=== PATIENT | female | born 1995 | race Caucasian/White ===

== ENCOUNTER 2020-03-19 08:08 | Inpatient (IN) ==
[2020-03-19] MEDS ORDERED: Lidocaine 1% 20 ML MDV INFILT PRN (08:20)
[2020-03-19] MEDS ORDERED: Famotidine 20 MG/2 ML VIAL IVP PRN (08:20)
[2020-03-19] MEDS ORDERED: *HR* FentaNYL (PF) 100 MCG/2 ML VIAL IVP PRN (08:20)
[2020-03-19] MEDS ORDERED: Ondansetron 4 MG/2 ML VIAL IVP PRN (08:20)
[2020-03-19] MEDS ORDERED: Azithromycin 500 MG in 0.9 % Sodium Chloride 250 ML IVPB ONE (08:20)
[2020-03-19] MEDS ORDERED: Metoclopramide 10 MG/2 ML VIAL IVP PRN (08:20)
[2020-03-19] MEDS ORDERED: miSOPROStoL 25 MCG TABLET VG PRN ×2 (08:20→13:23)
[2020-03-19] MEDS ORDERED: Naloxone 0.4 MG/ML INJ IVP PRN (08:20)
[2020-03-19] MEDS ORDERED: EPHEDrine 50 MG/ML VIAL IVP PRN (08:21)
[2020-03-19] MEDS ORDERED: Oxytocin 20 units/ LR 1000 mL 20 UNIT/1,000 ML BAG IVC SCH (08:30)
[2020-03-19] MEDS ORDERED: Epidural Premix (fent/bupiv) 110 ML EP SCH (08:30)
[2020-03-19] MEDS: Ringers Solution, Lactated 1,000 ML IVC SCH ×2 (09:05→18:09)
[2020-03-19 09:28] LABS: Basophils % 0.2 %; Eosinophils # 0.2 K/mcL (0.0-0.6); Hematocrit 31.3 % (35.3-44.9); Hemoglobin 9.9 g/dL (11.5-15.4); Immature Granulocytes % 0.5 % (0-4); Lymphocytes # 1.9 K/mcL (0.6-4.6); Lymphocytes % 23.3 %; Mean Corpuscular HGB Conc 31.6 g/dL (31.6-35.5); Mean Corpuscular Hemoglobin 27.3 pg (28.0-33.3); Mean Corpuscular Volume 86.5 fL (83.0-100.0); Mean Platelet Volume 10.7 fL (9.4-12.4); Monocytes # 0.6 K/mcL (0.0-1.3); Monocytes % 7.6 %; Neutrophils # 5.4 K/mcL (1.6-8.9); Platelet Count 228 K/mcL (140-400); Red Blood Count 3.62 M/mcL (3.82-4.97); Red Cell Distribution Width 15.8 % (11.5-14.5); Segmented Neutrophils % 66.4 %; White Blood Count 8.1 K/mcL (4.3-11.1)
[2020-03-19 09:36] LABS: Amphetamine Screen,Urine Negative ng/mL (Cutoff=1000); Barbiturate Screen,Urine Negative ng/mL (Cutoff=200); Benzodiazepines Screen,Urine Negative ng/mL (Cutoff=200); Cannabinoid Screen,Urine Negative ng/mL (Cutoff = 50); Cocaine Screen,Urine Negative ng/mL (Cutoff= 300); Opiate Screen,Urine Negative ng/mL (Cutoff=300); Phencyclidine Screen,Urine Negative ng/mL (Cutoff=25)
[2020-03-19] MEDS ORDERED: miSOPROStoL 25 MCG TABLET PO PRN (12:58)
[2020-03-19] MEDS ORDERED: Ropivacaine/PF 0.2% 20 ML VIAL ONE (18:00)
[2020-03-19] MEDS ORDERED: Rho Immune Globulin 1,500 UNIT SYRINGE IM PRN (22:45)
[2020-03-19] MEDS ORDERED: Benzocaine/Menthol 56 GM AEROSOL SPRAY TP PRN (22:45)
[2020-03-19] MEDS ORDERED: Measles/Mumps/Rubella Vacc 0.5 ML VIAL SQ PRN (22:45)
[2020-03-19] MEDS ORDERED: Oxytocin 20 units/ LR 1000 mL 20 UNIT/1,000 ML BAG IVC ONE (22:45)
[2020-03-20] MEDS: Acetaminophen 325 MG TABLET PO PRN ×3 (00:56→20:34)
[2020-03-20] MEDS: Oxytocin 20 units/ LR 1000 mL 20 UNIT/1,000 ML BAG IVC SCH ×2 (01:23→19:15)
[2020-03-20 04:49] LABS: Basophils % 0.1 %; Eosinophils % 0.1 %; Immature Granulocytes % 0.5 % (0-4); Lymphocytes # 1.8 K/mcL (0.6-4.6); Lymphocytes % 11.4 %; Mean Corpuscular HGB Conc 32.1 g/dL (31.6-35.5); Mean Corpuscular Hemoglobin 27.4 pg (28.0-33.3); Mean Corpuscular Volume 85.1 fL (83.0-100.0); Mean Platelet Volume 10.8 fL (9.4-12.4); Monocytes % 6.4 %; Neutrophils # 12.8 K/mcL (1.6-8.9); Platelet Count 193 K/mcL (140-400); Red Blood Count 3.29 M/mcL (3.82-4.97); Red Cell Distribution Width 15.7 % (11.5-14.5); Segmented Neutrophils % 81.5 %; White Blood Count 15.7 K/mcL (4.3-11.1)
[2020-03-20] MEDS: Prenatal Vit/FA 1 EACH TABLET PO SCH (07:56)
[2020-03-21] MEDS: Acetaminophen 325 MG TABLET PO PRN (04:08)
[2020-03-21] MEDS: Prenatal Vit/FA 1 EACH TABLET PO SCH (08:22)
[2020-03-21 08:40] VITALS: BP 107/64
[2020-03-21 09:03] LABS: Basophils % 0.2 %; Eosinophils # 0.3 K/mcL (0.0-0.6); Eosinophils % 2.7 %; Hematocrit 26.8 % (35.3-44.9); Hemoglobin 8.3 g/dL (11.5-15.4); Immature Granulocytes % 0.5 % (0-4); Lymphocytes # 1.7 K/mcL (0.6-4.6); Mean Corpuscular Hemoglobin 27.3 pg (28.0-33.3); Mean Corpuscular Volume 88.2 fL (83.0-100.0); Mean Platelet Volume 10.5 fL (9.4-12.4); Monocytes # 0.7 K/mcL (0.0-1.3); Monocytes % 7.5 %; Neutrophils # 6.4 K/mcL (1.6-8.9); Platelet Count 167 K/mcL (140-400); Red Blood Count 3.04 M/mcL (3.82-4.97); Red Cell Distribution Width 16.4 % (11.5-14.5); Segmented Neutrophils % 70.1 %; White Blood Count 9.2 K/mcL (4.3-11.1)
== END 2020-03-21 09:45 | disposition home or self-care (01) | DRG 807 ==
LOC: 1NENULAB 08:08 → 1NENUOBS 03-20 02:21
PROVIDERS: ADMIT Obstetrics & Gynecology; ATTEND Obstetrics & Gynecology

== ENCOUNTER 2021-11-24 08:03 | Inpatient (IN) ==
[2021-11-24] MEDS ORDERED: Famotidine 20 MG/2 ML VIAL IVP PRN (08:14)
[2021-11-24] MEDS ORDERED: Naloxone 0.4 MG/ML INJ IVP PRN (08:14)
[2021-11-24] MEDS ORDERED: Metoclopramide 10 MG/2 ML VIAL IVP PRN (08:14)
[2021-11-24] MEDS ORDERED: *HR* Nalbuphine 10 MG/ML AMPUL IV PRN (08:14)
[2021-11-24] MEDS ORDERED: Oxytocin 30 UNIT/503 ML BAG IVC SCH ×2 (08:15→20:36)
[2021-11-24] MEDS ORDERED: Ringers Solution, Lactated 1,000 ML IVC SCH (08:15)
[2021-11-24] MEDS ORDERED: EPHEDrine 50 MG/ML VIAL IVP PRN (08:22)
[2021-11-24] MEDS ORDERED: Epidural Premix (fent/bupiv) 110 ML EP SCH (08:30)
[2021-11-24] MEDS ORDERED: miSOPROStoL 100 MCG TABLET RC ONE (10:08)
[2021-11-24] MEDS ORDERED: Methylergonovine 0.2 MG/ML AMPUL IM ONE (10:08)
[2021-11-24 10:13] LABS: Eosinophils % 1.9 %; Hemoglobin 11.1 g/dL (11.5-15.4); Platelet Count 243 K/mcL (140-400)
[2021-11-24 10:15] LABS: Basophils % 0.4 %; Eosinophils # 0.2 K/mcL (0.0-0.6); Hematocrit 33.6 % (35.3-44.9); Immature Granulocytes % 0.4 % (0-4); Immature Platelets 4.2 % (1.1-6.1); Lymphocytes # 2.2 K/mcL (0.6-4.6); Mean Corpuscular Hemoglobin 27.5 pg (28.0-33.3); Mean Corpuscular Volume 83.2 fL (83.0-100.0); Mean Platelet Volume 10.4 fL (9.4-12.4); Monocytes # 0.5 K/mcL (0.0-1.3); Monocytes % 6.9 %; Neutrophils # 4.8 K/mcL (1.6-8.9); Red Blood Count 4.04 M/mcL (3.82-4.97); Segmented Neutrophils % 62.4 %; White Blood Count 7.7 K/mcL (4.3-11.1)
[2021-11-24 10:17] LABS: Platelet Estimate Normal (Normal)
[2021-11-24 10:38] LABS: Influenza A PCR Negative (Negative); Influenza B PCR Negative (Negative); Resp. Syncytial Virus PCR Negative (Negative); SARS-CoV-2 by PCR (In House) Negative (Negative)
[2021-11-24 11:25] LABS: Amphetamine Screen,Urine Negative ng/mL (Cutoff=1000); Barbiturate Screen,Urine Negative ng/mL (Cutoff=200); Benzodiazepines Screen,Urine Negative ng/mL (Cutoff=200); Cannabinoid Screen,Urine Negative ng/mL (Cutoff = 50); Cocaine Screen,Urine Negative ng/mL (Cutoff= 300); Opiate Screen,Urine Negative ng/mL (Cutoff=300); Phencyclidine Screen,Urine Negative ng/mL (Cutoff=25)
[2021-11-24] MEDS ORDERED: Lanolin 7 G OINT...G. TP PRN (20:36)
[2021-11-24] MEDS ORDERED: Benzocaine/Menthol 56 GM AEROSOL SPRAY TP PRN (20:36)
[2021-11-24] MEDS ORDERED: Ondansetron ODT 4 MG TAB.RAPDIS SL PRN (20:36)
[2021-11-24] MEDS ORDERED: Rho Immune Globulin 1,500 UNIT SYRINGE IM PRN (20:36)
[2021-11-24] MEDS ORDERED: Measles/Mumps/Rubella Vacc 0.5 ML VIAL SQ PRN (20:36)
[2021-11-24] MEDS: Ibuprofen 600 MG TABLET PO SCH (22:12)
[2021-11-24] MEDS: Acetaminophen 325 MG TABLET PO SCH (22:13)
[2021-11-25] MEDS: Ibuprofen 600 MG TABLET PO SCH ×2 (04:27→13:12)
[2021-11-25] MEDS: Acetaminophen 325 MG TABLET PO SCH ×2 (04:27→13:12)
[2021-11-25 05:10] LABS: Basophils % 0.1 %; Eosinophils # 0.1 K/mcL (0.0-0.6); Eosinophils % 0.5 %; Hematocrit 29.3 % (35.3-44.9); Hemoglobin 9.6 g/dL (11.5-15.4); Immature Granulocytes % 0.3 % (0-4); Lymphocytes % 25.8 %; Mean Corpuscular HGB Conc 32.8 g/dL (31.6-35.5); Mean Corpuscular Hemoglobin 27.2 pg (28.0-33.3); Mean Platelet Volume 10.5 fL (9.4-12.4); Monocytes % 8.9 %; Platelet Count 225 K/mcL (140-400); Red Blood Count 3.53 M/mcL (3.82-4.97); Segmented Neutrophils % 64.4 %
[2021-11-25 05:11] LABS: Neutrophils # 7.5 K/mcL (1.6-8.9); White Blood Count 11.7 K/mcL (4.3-11.1)
[2021-11-25 07:39] VITALS: BP 99/64; PULSE 65; TEMP 98.1; O2SAT 98
[2021-11-25] MEDS ORDERED: Prenatal Vit/FA 1 EACH TABLET PO SCH (09:00)
== END 2021-11-25 18:50 | disposition home or self-care (01) | DRG 560 ==
LOC: 1NENULAB 08:03 → 1NENUOBS 20:32
PROVIDERS: ADMIT Obstetrics & Gynecology; ATTEND Obstetrics & Gynecology